=== PATIENT | male | born 1985 | race Hispanic/Latino ===

== ENCOUNTER → 2023-05-23 | Emergency (ER) | payer OTHER ==
--- NOTE | 2023-05-23 13:15 | EDPHYS ---
Physician Documentation [facility] Name: Angel Aguilar Age: 37 yrs Sex: Male : 1985 Arrival Date: 05/23/2023 Time: 12:12 Bed 12 Private MD: ED Physician Paco Marmolejo HPI: 05/23 13:00 This 37 yrs old Male presents to ER via Ambulatory with complaints of Insect cp Bite. 13:00 The patient presents with pain, that is acute, swelling, tenderness, erythema. cp 13:00 The complaints affect the right lower leg. Context: patient concerned he may have been cp bitten by spider. 13:00 Onset: The symptoms/episode began/occurred 2 day(s) ago. cp 13:00 Associated signs and symptoms: Pertinent negatives calf tenderness, fever, numbness, cp vomiting, weakness. Treatment prior to arrival includes: no previous treatment. Historical: - Allergies: 12:22 No Known Allergies; ll1 - Home Meds: 12:22 None [Active]; ll1 - PMHx: 12:22 None; ll1 - PSHx: 12:22 None; ll1 - Immunization history:: Adult Immunizations up to date. - Social history:: Smoking status: Patient reports the use of cigarette tobacco products, 1 cig/day. ROS: 13:05 Constitutional: Negative for body aches, chills, fever, poor PO intake, cp 13:05 Eyes: Negative for injury, pain, redness, and discharge, cp 13:05 ENT: Negative for drainage from ear(s), ear pain, sore throat, difficulty swallowing, difficulty handling secretions, 13:05 Cardiovascular: Negative for chest pain, palpitations, 13:05 Respiratory: Negative for cough, shortness of breath, wheezing, 13:05 Abdomen/GI: Negative for abdominal pain, vomiting, diarrhea, constipation, 13:05 Skin: Positive for erythema, swelling, of the right lower leg, pain, tenderness, 13:05 All other systems are negative, Exam: 13:10 Constitutional: The patient appears in no acute distress, alert, awake, non-toxic, well cp developed, well nourished, obese, 13:10 Head/Face: Normocephalic, atraumatic. cp 13:10 Eyes: Periorbital structures: appear normal, Conjunctiva: normal, no exudate, no injection, Sclera: no appreciated abnormality, Lids and lashes: appear normal, bilaterally, 13:10 ENT: External ear(s): are unremarkable, Nose: is normal, Mouth: Lips: moist, Oral mucosa: pink and intact, moist, Posterior pharynx: Airway: no evidence of obstruction, patent, 13:10 Chest/axilla: Inspection: normal, 13:10 Cardiovascular: Rate: normal, 13:10 Respiratory: the patient does not display signs of respiratory distress, Respirations: normal, no use of accessory muscles, no retractions, labored breathing, is not present, Breath sounds: are clear throughout, no decreased breath sounds, no stridor, no wheezing, 13:10 Abdomen/GI: Inspection: obese 13:10 Skin: cellulitis, that is moderate, patchy, on the right lower leg, 13:10 Neuro: Orientation: to person, place \T\ time. Mentation: is normal, Motor: moves all fours, strength is normal, Vital Signs: 12:22 BP 136 / 86; Pulse 91; Resp 18; Temp 98.3; Pulse Ox 99% ; Weight 136.98 kg; Height 5 ll1 ft. 9 in. ; Pain 5/10; 12:22 Body Mass Index 44.60 (136.98 kg, 175.26 cm) ll1 12:22 Pain Scale: Adult ll1 MDM: 12:26 Patient medically screened. cp 13:10 Differential diagnosis: cellulitis, allergic reaction, abscess, DVT, sepsis. cp 13:14 Data reviewed: vital signs, nurses notes. cp 13:14 Test considered but Not performed: Ultrasound right leg. Care significantly affected by cp the following chronic conditions: Obesity. Counseling: I had a detailed discussion with the patient and/or guardian regarding the historical points, exam findings, and any diagnostic results supporting the discharge/admit diagnosis, the need for outpatient follow up, a family practitioner, to return to the emergency department if symptoms worsen or persist or if there are any questions or concerns that arise at home. Administered Medications: No medications were administered Disposition Summary: 05/23/23 13:15 Discharge Ordered Notes: Location: Home cp Problem: new cp Symptoms: are unchanged cp Condition: Stable cp Diagnosis - Cellulitis of right lower limb - right lower leg cp Followup: cp - With: Private Physician - When: 48 Hours - Reason: Recheck today's complaints Discharge Instructions: - Discharge Summary Sheet cp - Cellulitis, Adult cp Forms: - Medication Reconciliation Form cp - Thank You Letter cp - Antibiotic Education cp - Prescription Opioid Use cp - Patient Portal Instructions cp - Leadership Thank You Letter cp Prescriptions: - Ibuprofen 800 mg Oral Tablet - take 1 tablet ORAL route every 8 hours As needed take with food; 30 tablet; cp Refills: 0, Product Selection Permitted - Doxycycline Hyclate 100 mg Oral Tablet - take 1 tablet ORAL route every 12 hours; 20 tablet; Refills: 0, Product cp Selection Permitted Signatures: Paco Hurley PA PA cp Lewis, Lynsay, RN RN ll1
--- NOTE | 2023-05-23 13:15 | ER ---
Nurse's Notes [facility] Name: Angel Aguilar Age: 37 yrs Sex: Male : 1985 Arrival Date: 05/23/2023 Time: 12:12 Bed 12 Private MD: Diagnosis: Cellulitis of right lower limb-right lower leg Presentation: 05/23 12:22 Chief complaint: Patient states: RLE redness, rash, swelling since Tuesday morning ll1 getting worse each day. Feels hot but no fever. Coronavirus screen: Client denies travel out of the [place] in the last 14 days. At this time, the client does not indicate any symptoms associated with coronavirus-19. Ebola Screen: Patient denies travel to an Ebola-affected area in the 21 days before illness onset. Initial Sepsis Screen: Does the patient meet any 2 criteria? No. Patient's initial sepsis screen is negative. Does the patient have a suspected source of infection? Yes: Skin breakdown/wound. Risk Assessment: Do you want to hurt yourself or someone else? Patient reports no desire to harm self or others. Onset of symptoms was May 21, 2023. 12:22 Method Of Arrival: Ambulatory ll1 12:22 Acuity: YOUSIF 3 ll1 Historical: - Allergies: 12:22 No Known Allergies; ll1 - Home Meds: 12:22 None [Active]; ll1 - PMHx: 12:22 None; ll1 - PSHx: 12:22 None; ll1 - Immunization history:: Adult Immunizations up to date. - Social history:: Smoking status: Patient reports the use of cigarette tobacco products, 1 cig/day. Screenin:[facility] ED Fall Risk Assessment (Adult) History of falling in the last 3 months, kc6 including since admission No falls in past 3 months (0 pts) Confusion or Disorientation No (0 pts) Intoxicated or Sedated No (0 pts) Impaired Gait No (0 pts) Mobility Assist Device Used No (0 pt) Altered Elimination No (0 pt) Score/Fall Risk Level 0 - 2 = Low Risk. Abuse screen: Denies threats or abuse. Denies injuries from another. Nutritional screening: No deficits noted. Tuberculosis screening: No symptoms or risk factors identified. Assessment: 13:27 General: Appears in no apparent distress. comfortable, obese, well groomed, well kc6 developed, Behavior is calm, cooperative, appropriate for age. Pain: Denies pain. Neuro: Level of Consciousness is awake, alert, obeys commands, Oriented to person, place, time, situation, Appropriate for age. Cardiovascular: Capillary refill < 3 seconds. Respiratory: Airway is patent Trachea midline Respiratory effort is even, unlabored, Respiratory pattern is regular, symmetrical. GI: No signs and/or symptoms were reported involving the gastrointestinal system. : No signs and/or symptoms were reported regarding the genitourinary system. EENT: No signs and/or symptoms were reported regarding the EENT system. Derm: Skin is healthy with good turgor, Skin is pink, warm \T\ dry. Rash noted that is red, on right navarro. Musculoskeletal: No signs and/or symptoms reported regarding the musculoskeletal system. Circulation, motion, and sensation intact. Capillary refill < 3 seconds, Range of motion: intact in all extremities. Vital Signs: 12:22 BP 136 / 86; Pulse 91; Resp 18; Temp 98.3; Pulse Ox 99% ; Weight 136.98 kg; Height 5 ll1 ft. 9 in. ; Pain 5/10; 12:22 Body Mass Index 44.60 (136.98 kg, 175.26 cm) ll1 12:22 Pain Scale: Adult ll1 ED Course: 12:15 Patient arrived in ED. rg4 12:15 Paco Hurley PA is PHCP. cp 12:15 Paco Marmolejo MD is Attending Physician. cp 12:24 Triage completed. ll1 12:24 Arm band placed on. ll1 13:13 Irma Abreu, RN is Primary Nurse. kc6 13:14 Patient placed in an exam room, on a stretcher. as6 13:27 Patient has correct armband on for positive identification. Bed in low position. Call kc6 light in reach. Side rails up X 1. Client placed on continuous cardiac and pulse oximetry monitoring. NIBP monitoring applied. 13:27 Patient maintains SpO2 saturation greater than 95% on room air. kc6 13:28 No provider procedures requiring assistance completed. Patient did not have IV access kc6 during this emergency room visit. Administered Medications: No medications were administered Medication: 13:28 VIS not applicable for this client. kc6 Outcome: 13:15 Discharge ordered by . cp 13:28 Discharged to home ambulatory, kc6 13:28 Condition: good 13:28 Discharge instructions given to patient, Instructed on discharge instructions, follow up and referral plans. medication usage, Demonstrated understanding of instructions, follow-up care, medications, Prescriptions given X 2, 13:28 Patient left the ED. kc6 Signatures: Paco Hurley PA PA cp Garcia, Rubi rg4 Avila Paz RN RN ll1 Rodríguez Navas RN RN as6 Irma Abreu RN RN kc6
[2023-05-23 13:46] VITALS: BP 136/86; TEMP 98.3; O2SAT 99
== END ==
LOC: ER 12:12
DX: L03.115 Cellulitis of right lower limb (principal); F17.210 Nicotine dependence, cigarettes, uncomplicated